=== PATIENT | female | born 1935 | race Caucasian/White ===

== ENCOUNTER 2020-07-27 00:25 | Inpatient (IN) | payer OTHER ==
[~2020-07-27] VITALS: Ht 152.4 cm; Wt 69.5 kg
--- NOTE | ~2020-07-27 | EMS ---
[address] [address] EMS Patient Care Report Name: GARETH PUCKETT Room #: 170-9 ADM IN M.R.#: [id number] Admission: 07/27/20 Attend Phys: Bill High Discharge: Date of : 36 Report #: [id number] THIS REPORT FOR: //name// Report Transmitted: 07/27/2020 07:53 EMS Care Summary [facility] MED-ACT Incident [id number] @ 07/26/2020 23:52 Incident [address] [place] [address] [place] [address] Patient GARETH PUCKETT Female, 84 Years 1935 Patient Address [address] [place] [address] Patient History Hypertension (HTN),Gastro-Esophageal Reflux Disease (GERD),Novel Coronavirus (COVID-19), Patient Allergies No known allergies, Chief Complaint Pt indicates she was having pain in her chest. Disposition Transported No Lights/[place] Dispatch Reason Chest Pain (Non-Traumatic) Transported To [facility] Narrative Arrived to find a 84 yr old female patient sitting in chair in her room with her daughter by her side with staff stating the patient was having chest pain and her blood pressure is high. The patient was diagnosed with COVID-19 last week and has been coughing up clear sputum. Patient is not due to be retested [address] [address] EMS Patient Care Report Name: GARETH PUCKETT Room #: 170-9 ADM IN M.R.#: [id number] Admission: 07/27/20 Attend Phys: Bill High Discharge: Date of : 36 Report #: [id number] until next Monday. Patient states about 1400 yesterday she ate "taco salad." Patient believes about 1700 the spicy food caused her to have chest pain that was radiating up the middle of her chest. It is difficult to get an accurate history from the patient, however the patient made it sound like the sensation was gone. Staff reports the patient's blood pressure was elevated at bed time prior to administration of her anti-hypertensive so EMS was summoned. Patient denies having a fever, being short of breath, or any nausea/vomiting/diarrhea. Patient believes her chest pain was due to reflux. A: See assessment tab. Patient put on a surgical mask. Patient walked to the cot. Physical exam. Vital signs. Moved to unit. En route to [facility]. Vital signs and ECG were monitored during transport. 12-lead ECG and BBP acquired during transport. We contacted [facility] on the [employer] radio. 324 mg of ASA PO. Patient's blood pressure improved during transport. Patient was alert with stable vital signs upon arrival at [facility]. Patient care was transferred to an ED RN at [facility] and the cot sheet was utilized to transfer patient care. Patient requested ambulance transport to [facility]. Initial Vitals @00:15P: 91,R: 16,SpO2: 93, @00:17P: 92,R: 16,BP: 152/68,Pain: 0/10,GCS: 15,SpO2: 93,Revised Trauma: 12,CO Suspected: false @00:12P: 90,R: 16,BP: 172/78,Pain: 0/10,GCS: 15,SpO2: 92,Revised Trauma: 12,CO Suspected: false @00:07P: 91,R: 16,BP: 164/76,Pain: 0/10,GCS: 15,SpO2: 90,Revised Trauma: 12, Assessments @00:10MENTAL:Person Oriented,Event Oriented,Place Oriented,Time Oriented,SKIN:HEENT:LUNG SOUNDS:ABDOMEN:PELVIS//GI:EXTREMITIES:Left Leg: Edema,Right Leg: Edema,Left Arm: No Abnormalities,Right Arm: No Abnormalities,PULSE:NEURO: Impression Chest Pain, Other (Non-Cardiac) Procedures @00:1712-Lead ECGResponse: UnchangedSucceeded@00:1512-Lead ECGResponse: UnchangedSucceeded@00:07Surgical Mask on PatientResponse: Unchanged@00:18Aspirin - 324 Milligrams (mg) - OralResponse: Unchanged Timeline [facility] [address] [place] [address] EMS Patient Care Report Name: GARETH PUCKETT Room #: 170-9 ADM IN M.R.#: [id number] Admission: 07/27/20 Attend Phys: Bill High Discharge: Date of : 37 Report #: [id number] 23:50,Call Received 23:50,Psap Call 23:52,Dispatched 23:52,En Route 23:57,On Scene 23:59,At Patient 00:07,Surgical Mask on Patient,Response: Unchanged 00:07,BP: 164/76 M,PULSE: 91,RR: 16 R,SPO2: 90 Ox,ETCO2: ,BG: ,PAIN: 0,GCS: 15, 00:08,Depart Scene 00:12,BP: 172/78 M,PULSE: 90,RR: 16 R,SPO2: 92 Ox,ETCO2: ,BG: ,PAIN: 0,GCS: 15, 00:15,12-Lead ECG,Response: UnchangedSucceeded, 00:15,BP: / M,PULSE: 91,RR: 16 R,SPO2: 93 Ox,ETCO2: ,BG: ,PAIN: ,GCS: , 00:17,12-Lead ECG,Response: UnchangedSucceeded, 00:17,BP: 152/68 M,PULSE: 92,RR: 16 R,SPO2: 93 Ox,ETCO2: ,BG: ,PAIN: 0,GCS: 15, 00:18,Aspirin - 324 Milligrams (mg) - Oral,Response: Unchanged 00:20,At Destination 00:54,Call Closed Disclaimer v1.1 Copyright 2020 [employer] This EMS Care Summary contains data elements from the applicable legal record (which may be displayed differently). It is designed to provide pertinent information for the following purposes: continuity of care, clinical quality, and state data reporting. The complete legal record is available to ED staff and administrators of the receiving hospital in [employer]'s Patient Tracker. All data is provided "as is."
[2020-07-27 00:26] VITALS: BP 182/59
[2020-07-27 01:07] LABS: HEMATOCRIT 37.6 % (37.0-47.0); HEMOGLOBIN 12.6 gm/dL (12.0-15.0); MCH 29.6 pg (26.0-34.0); MCHC 33.5 g/dL (28.0-37.0); MCV 88.5 fL (80.0-100.0); PLATELET COUNT 139 thou/uL (150-400); RBC 4.25 mil/uL (4.20-5.00); RDW 15.3 % (10.5-14.5); WBC 3.1 thou/uL (4.0-11.0)
--- NOTE | 2020-07-27 01:07 | NUR ---
DPOA DAUGHTER HUMERA CALLED FOR AN UPDATE, PHONENUMBER IN INFORMATION
[2020-07-27 01:11] LABS: ANION GAP 8 mmol/L (7-16); BUN 16 mg/dL (7-18); CALCIUM 10.1 mg/dL (8.5-10.1); CHLORIDE 90 mmol/L (98-107); CO2 28 mmol/L (21-32); CREATININE 1.1 mg/dL (0.6-1.0); GLUCOSE 116 mg/dL (74-106); POTASSIUM 3.6 mmol/L (3.5-5.1); SODIUM 126 mmol/L (136-145)
[2020-07-27 01:21] LABS: ALBUMIN 3.1 g/dL (3.4-5.0); SGOT 121 U/L (15-37); SGPT 49 U/L (30-65); TOTAL BILIRUBIN 1.2 mg/dL (0.2-1.0); TOTAL PROTEIN 8.4 g/dL (6.4-8.2); TROPONIN-I <0.06 ng/mL (<0.06)
[2020-07-27 01:42] LABS: ABSOLUTE NEUTROPHILS 1.6 thou/uL (1.4-8.2); METAMYELOCYTES 1 %
[2020-07-27 08:29] LABS: CHOLESTEROL 272 mg/dL (<200); HDL CHOLESTEROL 36 mg/dL (>40); LDL CHOLESTEROL 202 mg/dL (<100); TC:HDL 7.6 Ratio (Not establshd); TRIGLYCERIDE 173 mg/dL (<150); VLDL 35 mg/dL (<40)
--- NOTE | 2020-07-27 08:50 | NUR ---
spoke with pt daughter sohail, updated to plan of care and admit to inpt. will notify when room assigned
[2020-07-27 09:45] VITALS: BP 129/53
[2020-07-27 10:35] VITALS: BP 124/52
[2020-07-27 11:37] VITALS: BP 141/69
--- NOTE | 2020-07-27 13:24 | EKG ---
[facility] [address] [address] ELECTROCARDIOGRAM REPORT Name: GARETH PUCKETT Room #: 349-I ADM IN M.R.#: [id number] Admission: 07/27/20 Attend Phys: Bill High Discharge: Date of : 37 Report #: [id number] THIS REPORT FOR: cc: Levi Vang MD, Sahar R. MD Santiago, Patrick MD [facility] ~ THIS REPORT FOR: //name// [facility] ED Test Date: 2020-07-27 Test Time: 00:47:34 Pat Name: GARETH PUCKETT Department: Room: 349 Gender: F Subway Conductor: : 1935 Requested By: Jayesh Larry Order Number: [id number] MD: Yan Monreal Measurements Intervals [place] Rate: 81 P: 23 IL: 213 QRS: -16 QRSD: 138 T: -22 QT: 407 QTc: 473 Interpretive Statements Sinus rhythm Sinus pause Borderline prolonged IL interval Probable left atrial enlargement Right bundle branch block Nonspecific T abnormalities, lateral leads Baseline wander in lead(s) V1 No previous ECG available for comparison Electronically Signed On 07-27-2020 13:24:26 PENSION CONSULTANT by Yan Monreal [email or web address] <ELECTRONICALLY SIGNED> By: Yan Monreal MD, FACC 07/27/20 1324 Yan Monreal MD, FAC /EPI
[2020-07-27] MEDS ORDERED: MIRTAZAPINE45 MG (13:51)
[2020-07-27] MEDS ORDERED: KLOR-CON M2020 MEQ (13:52)
[2020-07-27] MEDS ORDERED: OMEPRAZOLE 20 M20 M1 (13:53)
[2020-07-27] MEDS ORDERED: LOPERAMIDE 2 MG2 M1 (13:55)
[2020-07-27] MEDS ORDERED: FUROSEMIDE 20 M20 M1 (13:57)
[2020-07-27] MEDS ORDERED: VITAMIN B-121000 MC2 PO (14:00)
[2020-07-27] MEDS ORDERED: TYLENOL325 MG PO (14:02)
[2020-07-27] MEDS ORDERED: PROAIR RESPICL90 MCG INH (14:04)
[2020-07-27] MEDS ORDERED: ANTACID CHEWAB1 EACH PO (14:08)
[2020-07-27] MEDS ORDERED: BIOFREEZE118 ML TOP (14:10)
[2020-07-27] MEDS ORDERED: MUCINEX600 MG PO (14:12)
--- NOTE | 2020-07-27 18:41 | NUR ---
1130 PT ADMITTED TO 349, PT ALERT AND ORIENTED X4, POOR HISTORIAN. DENIES ANY CHEST PAIN, NAUSEA AND VOMITTING. PT PLACED ON TELEMETRYM SR HR IN 70-80'S. ON 2L OF OXYGEN, NO SIGNS OF DISTRESS NOTED. ADMISSION AND ASSESSMENT COMPLETED. SKIN INTACT. CALLED PT FACILITY AND MEDICATION LISTED UPDATED. STANDBY ASSIST TO BSC. FALL PRECAUTION IN PLACE. DENIES ANY NEEDS ELEN. WILL CONTINUE TO MONITOR.
[2020-07-28 05:45] LABS: HEMATOCRIT 32.8 % (37.0-47.0); HEMOGLOBIN 10.7 gm/dL (12.0-15.0); MCH 29.4 pg (26.0-34.0); MCHC 32.7 g/dL (28.0-37.0); MCV 89.9 fL (80.0-100.0); PLATELET COUNT 134 thou/uL (150-400); RBC 3.64 mil/uL (4.20-5.00); RDW 15.3 % (10.5-14.5); WBC 2.4 thou/uL (4.0-11.0)
[2020-07-28 05:51] LABS: FIBRINOGEN 310.9 mg/dL (210-360); PROTIME 10.3 Seconds (9.3-11.4)
[2020-07-28 05:57] LABS: ALBUMIN 2.2 g/dL (3.4-5.0); CALCIUM 9.8 mg/dL (8.5-10.1); CREATININE 0.8 mg/dL (0.6-1.0); DIRECT BILIRUBIN 0.5 mg/dL (<0.1-0.2); POTASSIUM 3.6 mmol/L (3.5-5.1); TOTAL BILIRUBIN 0.7 mg/dL (0.2-1.0); TOTAL PROTEIN 6.5 g/dL (6.4-8.2)
[2020-07-28 06:21] VITALS: BP 152/58
[2020-07-28 06:57] VITALS: BP 161/67
--- NOTE | 2020-07-28 07:47 | NUR ---
ASSUMED CARE AT 1900, ASSESSMENT COMPLETED. PT ANXIOUS AND FORGETFUL W/HISTORY; EDUCATED PT ABOUT REMDESIVIR AND PLASMA, PT STRUGGLED TO PROCESS MEANING; SPOKE W/ PT'S DAUGHTER ABOUT TREATMENT AND SHE WAS IN SUPPORT OF ALL CHOICES--REITERATED TO PT AND ABLE TO START REMDESIVIR AND OBTAIN CONSENT FOR PLASMA. SATTING WELL ON 2L, LUNGS COARSE. SR W/BBB ON TELE, HR UPPER 50-70 OVERNIGHT. SENT MRSA SWAB AND URINE SAMPLE TO LAB, ASKED PT TO SPIT ANY SPUTUM INTO A SAMPLE CUP IF SHE WAS ABLE. NO OTHER CONCERNS, SHIFT REPORT GIVEN 0700.
[2020-07-28 08:26] LABS: ABSOLUTE NEUTROPHILS 1.3 thou/uL (1.4-8.2); PLATELET ESTIMATE DECREASED
[2020-07-28] MEDS ORDERED: BENZONATATE100 MG PO (13:08)
[2020-07-28] MEDS ORDERED: PROAIR HFA8.5 GM INH (13:11)
--- NOTE | 2020-07-28 13:45 | NUR ---
PT CARE ASSUMED AT 0700. A&Ox3. PT IS BECOMING MORE AND MORE FORGETFUL AND IS CALLING HER DAUGHTER EVERY 5 MINUTES. SPOKE WITH DAUGHTER AND GAVE UPDATE. PT HAS HAD TWO EPISODES OF DIARRHEA, STOOL SAMPLE OBTAINED. IV PATENT WITH NO REDNESS OR EDEMA, SALINE LOCKED. PT TAKES ONE PILL AT A TIME. SINUS RHYTHM ON THE MONITOR WITH BB. ON 3L. PT HAS STRESS INCONTINENCE. CALL LIGHT IN REACH. FALL PROTOCOL IN PLACE. INFORMED OF MEDS RECONCILED AND DIARRHEA. AWAITING ORDERES.
[2020-07-28 14:59] VITALS: BP 157/70; BP 157/89
[2020-07-28 15:31] VITALS: BP 157/70
--- NOTE | 2020-07-28 15:54 | NUR ---
Case opened to follow for dc planning. Pt is currently in ehanced ISO covid +. She was admitted from her MIGUEL apt at [facility] and is being treated for covid pneumonia. GI consult is also pending due to elev lipase and poss hepatitis. Dock Coordinator spoke with pt's dtr Vannesa who is her emergency contact and dpoa. Vannesa also has covid and believes the family was exposed last week when her father d/t cancer. The family gathered to say good by to the pt's spouse and a number of them have tested positive. Vannesa [place] from out of [place] but is currently quarentining in her parents apt at [facility]. She is available via cell phone as needed. Her morales Albarran is an alternate contact should she not be available. The DON at the facility reports that the pt is normally indep with gait and adl's using a rwalker. She can return directly there as long as she is at her baseline functionally. They do report the pt does have an anxious personality but is normally a&ox4. The family has posponed the for two weeks. Emotional support provided. Pt is getting her first dose of remdesivir and conv plasma today and is requiring 2liters of O2. She does not use o2 at baseline. Her pcp is Dr. Levi Vang. Pt's dtr has been getting updates from the unit. She is hopeful the pt can go directly back to her apt at dc and does not need a SNF referral. Will follow and ask for therapy evals as appropriate.
[2020-07-28 20:45] VITALS: BP 177/86
[2020-07-29 04:35] VITALS: BP 171/81
[2020-07-29 05:45] LABS: ALBUMIN 2.4 g/dL (3.4-5.0); CALCIUM 9.8 mg/dL (8.5-10.1); CREATININE 0.9 mg/dL (0.6-1.0); POTASSIUM 3.9 mmol/L (3.5-5.1); TOTAL BILIRUBIN 0.8 mg/dL (0.2-1.0)
[2020-07-29 05:47] LABS: DIRECT BILIRUBIN 0.5 mg/dL (<0.1-0.2)
[2020-07-29 08:06] VITALS: BP 167/72
[2020-07-29 11:50] VITALS: BP 168/77
--- NOTE | 2020-07-29 14:50 | NUR ---
ESEQUIEL reviewed chart and spoke with nursing and attending physician. Pt remains in Enhanced Isolation due to COVID-19. Pt is afebrile and on 3L of O2. PT is on IV abx and completing course of Remdesivir. SW requested therapy evals. ESEQUIEL spoke with Melida, director at [facility], who states they are not able to accept pt back over the weekend due to staffing. [facility] will need to review clinical/therapy updates on Monday to ensure they are able to accept pt back to the [place]. They do not currently have HH coming in to see residents due to COVID. No weekend discharge planned. ESEQUIEL spoke with pt's dtr, Eleanor, via phone to proivde update. Eleanor is agreeable with plan. ESEQUIEL is following to assist as needed with discharge planning.
[2020-07-29 15:36] VITALS: BP 161/59
--- NOTE | 2020-07-29 16:30 | NUR ---
ASSUMED CARE OF PT AT 0700. PT ALERT AND ORIENTED, IN NO ACUTE DISTRESS, VOICING MANY CONCERNS. SPOKE W/ DTR REGARDING POC. REMAINS ON 3L NC. HYPERTENSIVE - PHYSICIAN MADE AWARE. LOW GRADE TEMP. TYLENOL GIVING FOR PAIN IN HIP. IV ABX INFUSING PER ORDER. WCM.
[2020-07-29 19:14] VITALS: BP 122/62
--- NOTE | 2020-07-29 21:13 | HC ---
[facility] [place] [address] [place] [address] CONSULTATION Name: GARETH PUCKETT Room #: 349-I ADM IN M.R.#: [id number] Admission: 07/27/20 Attend Phys: Bill High Discharge: Date of : 36 Report #: [id number] THIS REPORT FOR: cc: Levi Vang MD, Sahar R. MD Geha,Fernando Rodgers MD ~ DATE OF SERVICE: 07/27/2020 INFECTIOUS DISEASE CONSULTATION REASON FOR CONSULTATION: Evaluate COVID-19 pneumonia. HISTORY OF PRESENT ILLNESS: An 84-year-old with underlying history of hypertension, obesity, who just lost her recently from COVID-19 infection, presents with acute onset of mid substernal burning chest pain. This occurred after eating a Taco salad. She does have a history of gastroesophageal reflux. No history of pancreatitis or liver disease. She has had a cholecystectomy. She has had recent diagnosis of COVID-19. She has had nonproductive cough. Denies any fever, chills or sweats. Does have some dyspnea on exertion. Following her admission to the Emergency Room, she was found to be hypoxic and now is on 2 liters of oxygen per nasal cannula. Hemodynamically, he has remained stable. CT scan of the abdomen had shown evidence of pancreatitis and some cystic pancreatic lesions. She has mild hepatosplenomegaly. No evidence of abscess. Chest x-ray showed bilateral pulmonary infiltrates. A 14-point review of system was negative other than what is described above. ALLERGIES: None known. MEDICATIONS: Mirtazapine, potassium, omeprazole, loperamide, Lasix, vitamin B12, albuterol, calcium carbonate, guaifenesin. PAST MEDICAL HISTORY: Hypertension, cholecystectomy. FAMILY HISTORY: No coronary artery disease. SOCIAL HISTORY: Nonsmoker, no significant alcohol intake. PHYSICAL EXAMINATION: VITAL SIGNS: Afebrile and hemodynamically stable. GENERAL: Alert and cooperative, on 2 liters of oxygen per nasal cannula. Reported mild epigastric discomfort with pain to her back. No evidence of rash or decubitus. No palpable adenopathy. [facility] [address] [place] [address] CONSULTATION Name: GARETH PUCKETT Room #: 349-I [facility] IN M.R.#: [id number] Admission: 07/27/20 Attend Phys: Bill High Discharge: Date of : 37 Report #: [id number] EYES: Without scleral icterus. MOUTH: Without mucositis. LUNGS: Coarse breath sounds posteriorly. No consolidation. HEART: Regular, without murmur, gallop or rub. ABDOMEN: Abdomen was moderately obese with mild distention and tenderness mostly in the epigastric region. There was fullness there without a specific mass lesion. No palpable hepatosplenomegaly. No guarding or rebound. No CVA tenderness. GENITORECTAL: Not performed. EXTREMITIES: Without clubbing, cyanosis or edema. NEUROLOGIC: Cranial nerves intact. Strength in the upper and lower extremities was symmetric and within normal limits. LABORATORY STUDIES: Reviewed. Microbiology reviewed. CT scan and ultrasound of the abdomen reviewed. Chest x-ray reviewed. IMPRESSION: 1. An 84-year-old with COVID-19 pneumonia. Acute pancreatitis with mild hepatitis, not yet clear as to the trigger. She does have cystic pancreatic masses, which will need further evaluation. 2. Obesity. 3. Hypertension. RECOMMENDATIONS: We will begin treatment for COVID-19. We will need to monitor her creatinine and liver function tests closely. Obtain serial chest x-ray and serial pancreatic enzymes. Given the patient's other comorbidities, we would make her at risk for further respiratory compromise. We will need to monitor on the COVID unit for cardiopulmonary assessment. <ELECTRONICALLY SIGNED> By: Fernando Cyr MD 07/29/202112 54 51 Fernando Cyr MD /nt
[2020-07-30 03:25] VITALS: BP 146/66
[2020-07-30 06:30] LABS: ALBUMIN 2.1 g/dL (3.4-5.0); CREATININE 0.9 mg/dL (0.6-1.0); DIRECT BILIRUBIN 0.5 mg/dL (<0.1-0.2); TOTAL BILIRUBIN 0.7 mg/dL (0.2-1.0); TOTAL PROTEIN 6.5 g/dL (6.4-8.2)
[2020-07-30 07:13] VITALS: BP 150/80
[2020-07-30 11:05] VITALS: BP 159/106
--- NOTE | 2020-07-30 11:23 | NUR ---
PT CARE ASSUMED AT 0700, PT ALERT AND ORIENTED X4, FORGETFUL AT TIMES. FRUSTRATED AT TIMES. PT DENIES ANY PAIN, NAUSEA AND VOMITTING. PT IS ON 3L OF OXYGEN, NO SIGNS OF DISTRESS NOTED. PT IS UP TO BSC WITH ONE ASSIST. CONTINUE TO BE ON FULL LIQUID DIET, TOLERATING IT WELL. USES CALL LIGHT APPROPRIATELY, FALL PRECAUTIONS IN PLACE. WILL CONTINUE TO MONITOR.
[2020-07-30 15:08] VITALS: BP 153/84
[2020-07-30 18:29] VITALS: BP 144/73
[2020-07-30 19:21] VITALS: BP 154/76
[2020-07-31 03:13] LABS: HEMATOCRIT 34.8 % (37.0-47.0); HEMOGLOBIN 11.3 gm/dL (12.0-15.0); MCH 29.3 pg (26.0-34.0); MCHC 32.6 g/dL (28.0-37.0); RBC 3.87 mil/uL (4.20-5.00); RDW 15.4 % (10.5-14.5); WBC 2.2 thou/uL (4.0-11.0)
[2020-07-31 03:25] LABS: CALCIUM 9.7 mg/dL (8.5-10.1); CREATININE 0.8 mg/dL (0.6-1.0); MAGNESIUM 1.8 mg/dL (1.8-2.4)
[2020-07-31 03:28] LABS: ALBUMIN 2.2 g/dL (3.4-5.0); DIRECT BILIRUBIN 0.6 mg/dL (<0.1-0.2); TOTAL BILIRUBIN 0.7 mg/dL (0.2-1.0); TOTAL PROTEIN 6.3 g/dL (6.4-8.2)
[2020-07-31 05:33] VITALS: BP 152/69
[2020-07-31 07:28] VITALS: BP 153/60
--- NOTE | 2020-07-31 13:25 | NUR ---
ASSUMED CARE OF PT AT 0700. PT ALERT AND ORIENTED, FORGETFUL, POOR HISTORIAN. DENIES SOA. BREATHING COMFORTABLY ON SUPPLEMENTAL OXYGEN. REPORTS DIFFICULTY SWALLOWING, AFRAID SHE WILL CHOKE. EVALUATED BY SPEECH THERAPIST - NO APPARENT MECHANICAL PROBLEMS NOTED. REMAINS ON FULL LIQUID. SEEN BY MANAGER MARKETING COMMUNICATION PER FAMILY REQUEST. UP W/ ASSIST. EXT APPEARING MORE EDEMATOUS - PHYSICIAN MADE AWARE. CALLS APPROPRIATELY. UP W/ SBA TO BSC. LAST DOSE OF REMDESIVIR TODAY. ANTICIPATE D/C MONDAY POSSIBLY.
[2020-07-31 15:23] VITALS: BP 160/58
[2020-07-31 18:59] VITALS: BP 134/58
[2020-08-01 03:34] VITALS: BP 156/69
[2020-08-01 05:31] LABS: HEMATOCRIT 34.5 % (37.0-47.0); HEMOGLOBIN 11.3 gm/dL (12.0-15.0); MCH 29.6 pg (26.0-34.0); MCHC 32.7 g/dL (28.0-37.0); MCV 90.5 fL (80.0-100.0); PLATELET COUNT 178 thou/uL (150-400); RBC 3.81 mil/uL (4.20-5.00); RDW 15.8 % (10.5-14.5); WBC 2.7 thou/uL (4.0-11.0)
--- NOTE | 2020-08-01 06:36 | NUR ---
Pt. slept fair during the night. Maintaining O2 sat in the upper 90's on 2L/NC. She reported shortness of breath with exertion. Up with assist to bathroom. Bed alarm on for safety. Afebrile.Making some progress towards care plan goals.
[2020-08-01 07:22] LABS: ABSOLUTE NEUTROPHILS 2.1 thou/uL (1.4-8.2); PLATELET ESTIMATE NORMAL
[2020-08-01 07:26] VITALS: BP 152/73
[2020-08-01 15:22] VITALS: BP 161/63
--- NOTE | 2020-08-01 17:59 | NUR ---
PATIENT NOW SLEEPING. SHE MAY LIKELY BE DISCHARGE TO ASSISTED LIVING ON MONDAY. SHE IS ALERT ORIENTED X4., DENIES PAIN WHEN ASKED. WILL CON WITH PLAN OF CARE.
[2020-08-01 19:05] VITALS: BP 118/61
[2020-08-02 03:53] VITALS: BP 120/71
--- NOTE | 2020-08-02 04:40 | NUR ---
UP TO BR MINIMAL ASSIST NEEDED. HAS BEEN RESTING QUIETLY TONIGHT. DENIES PAIN. CAREP PLAN REVIEWED.
[2020-08-02 07:29] VITALS: BP 168/65
[2020-08-02 15:09] VITALS: BP 148/67
--- NOTE | 2020-08-02 19:01 | NUR ---
RESTED IN ROOM THROUGH THE DAY. PLEASANT WITH CARE. WILL CONT TO MONITOR
[2020-08-02 19:55] VITALS: BP 145/63
[2020-08-03 05:05] VITALS: BP 165/70
--- NOTE | 2020-08-03 06:39 | NUR ---
Pt. slept fair during the night. Cont. on enhanced precaution , afebrile. Bed alarm on for safety.Up with assist to commode , brief already wet then voided some more.Maintaining O2 sat in the mid to upper 90's on 1L/NC. She verbalized she still gets short of breath with exertion.Making progress towards care plan goals.
[2020-08-03 07:59] VITALS: BP 164/63
--- NOTE | 2020-08-03 11:21 | NUR ---
ESEQUIEL reviewed chart and spoke with nursing and attending physician. Pt remains in Enhanced Isolation due to COVID-19. Pt is afebrile and off O2. Pt is medically stable for discharge. ESEQUIEL spoke with pt via phone to discuss discharge plan. Pt stating that she feels that she needs therapy, as she feels she is very weak. SW discuss options for post-acute placement. Pt asked about going to [facility] as staff told her that we have rehab here. SW explained that [facility] is not accepting COVID positive pts at this time. SW discussed SNF options. Pt is agreeable with referral to [facility] SN[facility]. ESEQUIEL spoke with pt's dtr, Vannesa, regarding discharge plan. Vannesa states she was under the impression pt could return to [facility] with therapy. ESEQUIEL faxed clinical info to [facility] for review. ESEQUIEL spoke with Melida, Director of [facility], who states that they do not have therapy available at this time. ESEQUIEL left voice message for Vannesa to provide update. ESEQUIEL is following to assist as needed with discharge planning.
--- NOTE | 2020-08-03 12:34 | NUR ---
Followup: resolving pancreatitis. Pt noting to be discharged today. Has been on full liquid diet x 6 days and drinking Ensure. Spoke with RN about ability to advance diet and receive order from physician to advance to solids which should be addressed prior to discharge.
[2020-08-03 15:28] VITALS: BP 137/60
--- NOTE | 2020-08-03 18:36 | NUR ---
PT TO DISCHARGE TOMORROW TO A FACILITY [facility] AT 1100. WILL REPORT TO ONCOMING RN TO PASS ON TO NOC SHIFT. NO ACUTE PROCESSES AT THIS TIME, PT IS PROGRESSING TOWARDS DISCHARGE THERE IS A SET PLAN. DAUGHTER CALLED TO RETRIEVE MORE INFORMATION AOBUT THE PT, RN HELPED THE [employer] TECHNOLOGY DEVELOPMENT MANAGER GET IN CONTACT, IT WAS NOTIFIED THAT [employer] TECHNOLOG[employer] DEVELOPMENT MANAGER HAD LEFT A VOICE MAIL TO THE DAUGHTER REGARDING CURRENT DISCHARGE PLANS
[2020-08-03 19:07] VITALS: BP 109/50
[2020-08-04 04:16] VITALS: BP 138/59
--- NOTE | 2020-08-04 04:56 | NUR ---
PT MAKING PROGRESS TOWARDS GOALS. ON ROOM AIR THROUGHOUT THE NIGHT. HAS DENIED ANY SOA WHILE AT REST. STATES SHE BELIEVES SHE IS READY TO GO TO REHAB TODAY "SO I CAN LEARN TO WALK AGAIN BEFORE I GO HOME."
[2020-08-04 07:04] VITALS: BP 149/83
--- NOTE | 2020-08-04 08:32 | NUR ---
SW received message from [facility] SNF liaison that pt's [employer] policy termed on 08/03. Will need to clarify pt's new insurance prior to discharge. ESEQUIEL spoke with pt via phone to notify. Pt is unaware if she has a different insurance policy. Pt requested SW contact her dtr, Vannesa. ESEQUIEL left voice message for Vannesa. Awaiting call back at this time. ESEQUIEL is following to assist as needed with discharge planning.
[2020-08-04 15:02] VITALS: BP 122/66
--- NOTE | 2020-08-04 16:40 | NUR ---
RN ASSUMED PT'S CARE AT 0700AM, PT IS A&OX3, PT IS ON ROOM AIR, BUT PT NEEDS O2 2L/MIN/NC WHEN PT WORKED WITH PT, PT'S VS ARE STABLE, PT GETS UP TO BSC WITH ASSIST, PT IS ON ISOLATION FOR POSITIVE COVID, SW IS WORKING ON PT'S DISCHARGE PLANNING.
[2020-08-04 19:09] VITALS: BP 123/63
--- NOTE | 2020-08-05 04:37 | NUR ---
PT MAKING PROGRESS TOWARD GOALS. ON ROOM AIR THROUGHOUT THE NIGHT. ASSISTED PT FROM BED TO TOILET. PT HAD NO SIGNIFICANT SOA WITH THIS ACTIVITY. HOPES TO BE ABLE TO "GO TO A NICE PLACE FOR REHAB."
[2020-08-05 05:20] VITALS: BP 166/64
[2020-08-05 06:53] VITALS: BP 168/83
--- NOTE | 2020-08-05 11:01 | NUR ---
ESEQUIEL reviewed chart and spoke with nursing and attending physician. Pt remains in Enhanced Isolation. Pt is afebrile and off O2. Pt is medically stable to discharge to [facility] SNF pending verification of pt's insurance. ESEQUIEL spoke with pt's dtr, Vannesa, this morning via phone. Vannesa spoke with [facility] [employer] and [employer]. ID# and pt's Medicare # provided. Contact number of [phone] option 3 provided to work on auth for SNF. ESEQUIEL provided this info to Amelie at [facility]. ESEQUIEL is following to assist as needed with discharge planning.
[2020-08-05 15:05] VITALS: BP 119/66
--- NOTE | 2020-08-05 15:58 | NUR ---
ASSUMED CARE OF PT AT 0700. PT ALERT AND ORIENTED, IN NO ACUTE DISTRESS. BREATHING COMFORTABLY ON ROOM AIR. VITALS STABLE. PENDING INSURANCE FOR SNF. WCM.
[2020-08-05 19:30] VITALS: BP 136/64
--- NOTE | 2020-08-05 23:09 | NUR ---
ASSUMED PT CARE AT 1930.PT ALERT AND ORIENTED.PT DENIED PAIN SO FAR.PT REF HER DEXTHROMETORPHAN,PT STATED THAT SHE IS NOT COUGHING ANY MORE.NOP CONCERNS NOTED FROM PT.PT BREATHING NORMAL AND NON LABORED.FALL AND ISOLATION PRECAUTIONS MAINTAINED.CALL LIGHT WITHIN REACH.
[2020-08-06 03:58] VITALS: BP 128/74
[2020-08-06 07:08] VITALS: BP 165/75
[2020-08-06] MEDS ORDERED: ZINC SULFATE 2220 MG PO (08:13)
[2020-08-06] MEDS ORDERED: VITAMIN B-1100 M2 PO (08:14)
[2020-08-06] MEDS ORDERED: VITAMINC500 PO (08:14)
--- NOTE | 2020-08-06 13:00 | NUR ---
ESEQUIEL reviewed chart and spoke with nursing and attending physician. Pt remains in Enhanced Isolation due to COVID-19. Pt is afebrile and not requiring O2. Pt is medically stable for discharge to [facility] SNF. ESEQUIEL notified that pt's [employer] policy is active. Info forwarded to Amelie at [facility]. [facility] submitted for insurance authorization this morning. ESEQUIEL faxed finalized discharge orders/summary to [facility] for review. Awaiting insurance auth at this time. ESEQUIEL spoke with pt's dtr, Vannesa, via phone to provide update. Vannesa is aware and agreeable with discharge plan. Chart copy to be updated. ESEQUIEL is following to assist as needed with discharge planning.
[2020-08-06 15:11] VITALS: BP 128/60
== END 2020-08-06 17:02 | DRG 871 ==
LOC: ER 00:25 → 3W 08:07 → EROBS 08:07 → 3W 11:05
PROVIDERS: Emergency Medicine; Internal Medicine; Nurse Practitioner; Specialist; ADMIT Hospitalist; ATTEND Hospitalist
PROC: XW033E5 Introduction of Remdesivir Anti-infective into Peripheral Vein, Percutaneous Approach, New Technology Group 5 (ICD-10-PCS; principal; 2020-07-27)
PROC: XW13325 Transfusion of Convalescent Plasma (Nonautologous) into Peripheral Vein, Percutaneous Approach, New Technology Group 5 (ICD-10-PCS; 2020-07-28)
DX: A41.9 Sepsis, unspecified organism (principal); U07.1 COVID-19; K85.90 Acute pancreatitis without necrosis or infection, unspecified; J12.9 Viral pneumonia, unspecified; E43 Unspecified severe protein-calorie malnutrition; N17.0 Acute kidney failure with tubular necrosis; K83.1 Obstruction of bile duct; J96.01 Acute respiratory failure with hypoxia; E87.1 Hypo-osmolality and hyponatremia; K86.2 Cyst of pancreas; K29.00 Acute gastritis without bleeding; I10 Essential (primary) hypertension; E66.9 Obesity, unspecified; E78.5 Hyperlipidemia, unspecified; K75.9 Inflammatory liver disease, unspecified; K76.0 Fatty (change of) liver, not elsewhere classified; Z90.49 Acquired absence of other specified parts of digestive tract; Z68.29 Body mass index [BMI] 29.0-29.9, adult; Z79.899 Other long term (current) drug therapy
CPT/HCPCS: 10879